=== PATIENT | female | born 1975 | race Caucasian/White ===

== ENCOUNTER 2023-05-18 04:28 | Day surgery (SDC) | payer OTHER ==
[2023-05-17 13:43] VITALS: BMI 29.2
[2023-05-18] MEDS ORDERED: oxyCODONE HCL 5 MG TABLET PO PRN (11:06)
[2023-05-18] MEDS ORDERED: ONDANSETRON 4 MG/2 ML VIAL IVPUSH PRN (11:06)
[2023-05-18] MEDS ORDERED: PROMETHAZINE HCL 25 MG/1 ML VIAL IVPB PRN (11:06)
[2023-05-18] MEDS ORDERED: LACTATED RINGERS SOLUTION 1,000 ML IV SCH (11:15)
[2023-05-18] MEDS ORDERED: PROPOFOL 20 ML ONE ×2 (11:39→12:34)
[2023-05-18] MEDS ORDERED: LIDOCAINE HCL/PF 2% SDV 5ML VIAL ONE (11:39)
[2023-05-18] MEDS ORDERED: KETOROLAC TROMETHAMINE 30 MG/1 ML VIAL ONE (11:39)
[2023-05-18] MEDS ORDERED: MIDAZOLAM HCL 2 MG/2 ML SINGLE DOSE VIAL ONE (12:02)
[2023-05-18] MEDS ORDERED: ONDANSETRON 4 MG/2 ML VIAL ONE (12:03)
[2023-05-18 14:08] VITALS: TEMP 97.3
[2023-05-18 15:14] VITALS: RESP 20
[2023-05-18 16:15] VITALS: BP 115/68; PULSE 59
== END 2023-05-18 16:10 | disposition home or self-care (01) ==
LOC: JASU-SURG 04:28
PROVIDERS: ATTEND Student in an Organized Health Care Education/Training Program
PROC: 0UDB8ZX Extraction of Endometrium, Via Natural or Artificial Opening Endoscopic, Diagnostic (ICD-10-PCS; principal; 2023-05-18 12:00)
DX: N93.8 Other specified abnormal uterine and vaginal bleeding (principal)
CPT/HCPCS: 81025; 88305-TC; 94760

== ENCOUNTER 2023-07-29 04:10 | Day surgery (SDC) | payer OTHER ==
[2023-07-27 13:55] VITALS: BMI 29.2
[2023-07-29] MEDS ORDERED: SUCCINYLCHOLINE CHLORIDE 200 MG/10 ML SYRINGE ONE ×2 (07:53→09:46)
[2023-07-29] MEDS ORDERED: FENTANYL CITRATE/PF 50 MCG/ML VIAL ONE ×3 (07:53→09:34)
[2023-07-29] MEDS ORDERED: PROPOFOL 80 ML ONE (07:53)
[2023-07-29] MEDS ORDERED: ROCURONIUM BROMIDE 50 MG/5 ML SYRINGE ONE ×2 (07:54→09:46)
[2023-07-29] MEDS ORDERED: MIDAZOLAM HCL 2 MG/2 ML SINGLE DOSE VIAL ONE (07:54)
[2023-07-29] MEDS ORDERED: PROPOFOL 20 ML ONE ×3 (08:46→09:45)
[2023-07-29] MEDS ORDERED: ONDANSETRON 4 MG/2 ML VIAL IVPUSH PRN (09:22)
[2023-07-29] MEDS ORDERED: oxyCODONE HCL 5 MG TABLET PO PRN (09:22)
[2023-07-29] MEDS ORDERED: LACTATED RINGERS SOLUTION 1,000 ML IV SCH (09:30)
[2023-07-29 10:05] VITALS: RESP 20
[2023-07-29 11:53] VITALS: BP 118/60; PULSE 69; TEMP 98
== END 2023-07-29 11:53 | disposition home or self-care (01) ==
LOC: JASU-SURG 04:10
PROVIDERS: ATTEND Student in an Organized Health Care Education/Training Program
PROC: 0UPD8HZ Removal of Contraceptive Device from Uterus and Cervix, Via Natural or Artificial Opening Endoscopic (ICD-10-PCS; principal; 2023-07-29 08:00)
DX: T83.89XA Other specified complication of genitourinary prosthetic devices, implants and grafts, initial encounter (principal); Y99.9 Unspecified external cause status
CPT/HCPCS: 81025; 88300-TC; 94760